=== PATIENT | female | born 1940 | race Caucasian/White ===

== ENCOUNTER → 2018-03-29 | Emergency (ER) | payer MEDICARE, OTHER ==
[~2018-03-29] VITALS: Ht 162.6 cm; Wt 54.4 kg
[~2018-03-29] MED LIST: ESTRACE1 MG PO; NEXIUM 24HR20 M2 PO; PROAIR HFA8.5 GM INH; RHINOCORT ALL8.43 ML NS; SIMVASTATIN20 MG PO; VOLTAREN-XR100 MG PO
== END ==
LOC: ED 23:02
DX: S51.811A Laceration without foreign body of right forearm, initial encounter (principal); Z88.0 Allergy status to penicillin; Z23 Encounter for immunization; Z88.5 Allergy status to narcotic agent; Z79.899 Other long term (current) drug therapy; W45.8XXA Other foreign body or object entering through skin, initial encounter
CPT/HCPCS: 90471; 90715; 99282

== ENCOUNTER 2022-07-25 23:41 | Emergency (ER) | payer OTHER, MEDICARE ==
[~2022-07-25] VITALS: Ht 162.6 cm; Wt 54.4 kg
[2022-07-26] MEDS ORDERED: ULTRAM50 MG PO (02:50)
[2022-07-26] MEDS ORDERED: BACTRIM DS TAB1 EACH PO (02:50)
[2022-07-26] MEDS ORDERED: ONDANSETRON ODT8 MG PO (02:50)
--- NOTE | 2022-07-30 17:00 | EKG ---
[facility] [address] [address] [place] [address] Signed Normal sinus rhythm Nonspecific T wave abnormality Abnormal ECG No previous ECGs available Confirmed by David Snow MD () on 07/30/2022 5:00:03 PM Electronically Signed By: DAVID SNOW MD 07/30/22 1700 PATIENT NAME: MJ LOZA Electrocardiogram DATE OF : 36 PHYSICIAN: DAVID SNOW MD REPORT #: [id number] REPORT IS CONFIDENTIAL AND NOT TO BE RELEASED WITHOUT AUTHORIZATION
== END 2022-07-26 03:32 | disposition home or self-care (01) ==
LOC: ED 23:41
DX: S01.01XA Laceration without foreign body of scalp, initial encounter (principal); E86.0 Dehydration; W01.10XA Fall on same level from slipping, tripping and stumbling with subsequent striking against unspecified object, initial encounter; Z88.0 Allergy status to penicillin; Z88.5 Allergy status to narcotic agent; Z79.899 Other long term (current) drug therapy
CPT/HCPCS: 12034; 36415; 70450; 73030; 80053; 81001; 85025; 90471; 90715; 93005; 93010; 99285-25; A9270; J2405

== ENCOUNTER 2022-09-27 18:18 | Emergency (ER) | payer MEDICARE, OTHER ==
[~2022-09-27] VITALS: Ht 162.6 cm; Wt 51.3 kg
[~2022-09-27 18:18] MED LIST changes: +BACTRIM DS TAB1 EACH PO; +ONDANSETRON ODT8 MG PO; +ULTRAM50 MG PO
[2022-09-27] MEDS ORDERED: LOSARTAN POTASS50 MG PO (18:36)
[2022-09-27] MEDS ORDERED: LUMIGAN2.5 M1 OPTH (18:36)
[2022-09-27] MEDS ORDERED: BRINZOLAMIDE15 ML OP (18:36)
--- NOTE | 2022-09-30 06:48 | EKG ---
[facility] [address] [facility] [place], [place] [address] Signed Normal sinus rhythm Nonspecific T wave abnormality Abnormal ECG When compared with ECG of 25-JUL-2022 23:40, No significant change was found Confirmed by ALEJANDRO GUILLERMO MD ([id number] on 09/30/2022 6:48:18 AM Electronically Signed By: ALEJANDRO GUILLERMO MD 09/30/22 0648 PATIENT NAME: DAGOMJ ZACK Electrocardiogram DATE OF : 36 PHYSICIAN: ALEJANDRO GUILLERMO MD REPORT #: [id number] REPORT IS CONFIDENTIAL AND NOT TO BE RELEASED WITHOUT AUTHORIZATION
== END 2022-09-28 11:50 | disposition short-term general hospital (02) ==
LOC: ED 18:18
DX: A41.9 Sepsis, unspecified organism (principal); R65.20 Severe sepsis without septic shock; J96.01 Acute respiratory failure with hypoxia; J69.0 Pneumonitis due to inhalation of food and vomit; N17.9 Acute kidney failure, unspecified; I50.9 Heart failure, unspecified; J44.9 Chronic obstructive pulmonary disease, unspecified; I11.0 Hypertensive heart disease with heart failure; Z88.0 Allergy status to penicillin; Z88.5 Allergy status to narcotic agent; Z79.899 Other long term (current) drug therapy; Z20.822 Contact with and (suspected) exposure to COVID-19
CPT/HCPCS: 31500; 36415; 36556; 36600; 51702; 71045; 71260; 73030; 73502; 80048; 80053; 82803; 83605; 83735; 83880; 84484; 85007; 85025; 85060; 85379; 87502; 93005; 93010; 94002; 94660; 99285-25; J2185; J2704; J2930; J3010; J7030; Q9967; U0003